=== PATIENT | male | born 1975 | race Caucasian/White ===

== ENCOUNTER 2018-03-02 07:28 | Emergency (ER) | payer BC, OTHER ==
[2018-03-02 07:49] LABS: Bilirubin Negative (Negative); Blood, Urine Large (Negative); Clarity CLOUDY (Clear); Glucose, Urine (Dipstick) Negative (Negative); Leukocyte Trace (Negative); Nitrite Negative (Negative); Protein, Urine (Dipstick) 100 mg/dL (Neg-Trace); Specific Gravity, Urine 1.018 (1.002-1.036); Urobilinogen 0.2 mg/dL (0.2-1.0); pH, Urine 5.5 (5.0-9.0)
[2018-03-02 07:52] LABS: Hyaline Casts/LPF 0-3 HYALINE CAST LPF (0-3 Hyaline); Pathc Cast-AUWi Flag 0.43 (0-2.49); RBC/HPF GREATER THAN 50-TNTC HPF (0-3); Squamous Epithelial 0-3 HPF (0-3)
[2018-03-02] MEDS ORDERED: Ondansetron PF 4 MG/2 ML Vial ONE (08:01)
[2018-03-02] MEDS ORDERED: Ketorolac Tromethamine 30 MG/ML VIAL ONE (08:01)
[2018-03-02 08:04] LABS: #Basophils 0.1 thou/uL (0.0-0.2); #Eosinphils 0.2 thou/uL (0.0-0.7); #Monocytes 0.7 thou/uL (0.11-0.59); #Neutrophils 5.2 thou/uL (1.40-6.50); %Basophils 0.7 % (0.0-1.0); %Lymphocytes 24.3 % (21.0-51.0); %Monocytes 8.4 % (0.0-10.0); %Neutrophils 64.6 % (42.0-75.0); Hemoglobin 17.3 g/dL (14.0-18.0); Mean Corpuscular HGB CONC 33.8 g/dL (32.0-36.0); Mean Corpuscular Hemoglobin 31.1 pg (27.0-31.0); Mean Platelet Volume 6.8 fL (7.4-10.4); Platelet Count 243 thou/uL (130-400); RBC Distribution Width 10.8 % (11.5-14.5); Red Blood Cell (RBC) Count 5.56 mill/uL (4.70-6.10); White Blood Cell (WBC) Count 8.1 thou/uL (4.8-10.8)
[2018-03-02 08:06] LABS: Bacteria/HPF Rare-Few HPF (None Seen); Yeast-All Forms None Seen HPF (None Seen)
[2018-03-02 08:28] LABS: ALT (SGPT) 54 U/L (8-55); AST (SGOT) 28 U/L (5-34); Albumin 4.6 g/dL (3.5-5.0); Alkaline Phosphatase 89 U/L (40-150); Anion Gap 14 mmol/L (10-20); BUN (Urea Nitrogen) 12 mg/dL (8.9-20.6); Bilirubin, Total 0.4 mg/dL (0.2-1.2); Calc. Creatinine Clearance 0 mL/min (70-130); Calcium 9.9 mg/dL (7.8-10.44); Carbon Dioxide 24 mmol/L (22-29); Chloride 104 mmol/L (98-107); Estimated GFR-MDRD 72; Globulin 2.8 g/dL (2.4-3.5); Glucose 107 mg/dL (70-105); Lipase 13 U/L (8-78); Potassium 3.9 mmol/L (3.5-5.1); Protein, Total 7.4 g/dL (6.0-8.3); Sodium 138 mmol/L (136-145)
--- NOTE | 2018-03-02 09:13 | CT ---
CT ABDOMEN NONCONTRAST CT PELVIS NONCONTRAST: (urolithiasis protocol) DATE: 03/02/2018. TIME: 8:18 a.m. HISTORY: A 42-year-old male with right flank pain. COMPARISON: None. TECHNIQUE: IV injection of iodinated contrast media: none. Oral contrast media: none. FINDINGS: Other than for urolithiasis, the lack of IV and oral contrast limits the evaluation. There is a 4 x 3 x 6 mm calculus lodged in the right mid-distal ureter at the mid sacral level causin g moderate right hydroureteronephrosis. There are several tiny bilateral renal calculi in upper, mid , and lower pole calyces. The ones on the right are fewer, and are on the order of 1 or 2 mm in size each. The ones on the left range from 1 mm for the smaller ones, and up to 3 mm for the largest one . No left-sided hydronephrosis. There is a faint, round 1 cm slight hypodensity in the posterior pa renchyma of the right renal mid pole which is too small to definitively characterize. No calculus wi thin the decompressed urinary bladder. Normal appendix. No small bowel dilation. No colonic divert iculitis. Within the limitations of a noncontrast scan, no definite abnormality identified involving liver, abdominal aorta, adrenals, pancreas, or spleen. No ascites or pneumoperitoneum. IMPRESSION: 1. Positive for obstructive uropathy: a 6 mm calculus in the right mid-distal ureter causing modera te right hydroureteronephrosis. 2. Bilateral nephrolithiasis. KEKE Valles POS: KIERA
== END 2018-03-02 09:20 | disposition home or self-care (01) ==
LOC: ERS 07:28
DX: N13.2 Hydronephrosis with renal and ureteral calculous obstruction (principal); G47.30 Sleep apnea, unspecified; G43.909 Migraine, unspecified, not intractable, without status migrainosus
CPT/HCPCS: 36415; 74176; 80053; 81003; 81015; 83690; 85025; 87086; 96361; 96374; 96375; J1885; J2405

== ENCOUNTER 2018-03-08 09:24 | Outpatient (CLI) | payer BC ==
[2018-03-08 11:27] LABS: PTT 31.4 SEC (22.9-36.1)
== END 2018-03-08 09:25 | disposition home or self-care (01) ==
LOC: LABBT 09:24
PROVIDERS: ATTEND Urology
DX: Z01.818 Encounter for other preprocedural examination (principal); N20.1 Calculus of ureter
CPT/HCPCS: 85610; 85730; 93005; 93010

== ENCOUNTER 2018-03-11 10:46 | Day surgery (SDC) | payer BC ==
[2018-03-08 12:23] VITALS: BMI 36.1
[2018-03-11] MEDS ORDERED: Levofloxacin 500 mg/D5W 100 ml Premix Bag ONE (11:34)
[2018-03-11] MEDS ORDERED: Iothalamate Meglumine 60% 50 ML VIAL FS ONE (11:47)
[2018-03-11] MEDS ORDERED: Fentanyl 100 MCG/2 ML VIAL ONE (11:50)
--- NOTE | 2018-03-11 12:23 | RAD ---
ABDOMEN 1 VIEW: Date: 03/11/18 HISTORY: Preoperative evaluation. FINDINGS: Probable very tiny, faint left renal lower pole calculus. No bowel obstruction or other acute process . The previously noted right ureteral calculus is somewhat obscured, but probably still overlies the ri ght inferior sacral region. IMPRESSION: Probable persistent right ureteral calculus overlying the right sacrum, although it is at least parti ally obscured. Tiny nonobstructing left renal calculus. POS: WAYNE
[2018-03-11] MEDS ORDERED: Oxybutynin 5 MG TAB ONE (13:35)
[2018-03-11] MEDS ORDERED: Phenazopyridine HCl 97.5 MG TABLET ONE (13:35)
--- NOTE | 2018-03-11 14:54 | OP ---
DATE OF PROCEDURE: 03/11/2018 PRIMARY CARE PHYSICIAN: Dr. Adria Bhagat. PREOPERATIVE DIAGNOSES: 1. A 42-year-old male with history of right mid ureteral calculi at the level of inferior SI joint measuring 4 x 3 x 6 mm. Hounsfield unit 1100. 2. Right punctate renal lithiasis. 3. Right lower pole hypodense renal cyst 1 cm. 4. Left renal lithiasis in the mid to lower pole x2, 3 mm, 1 mm respectively. POSTOPERATIVE DIAGNOSES: 1. A 42-year-old male with history of right mid ureteral calculi at the level of inferior SI joint measuring 4 x 3 x 6 mm. Hounsfield unit 1100. 2. Right punctate renal lithiasis. 3. Right lower pole hypodense renal cyst 1 cm. 4. Left renal lithiasis in the mid to lower pole x2, 3 mm, 1 mm respectively. PROCEDURES PERFORMED: Cystoscopy, bilateral retrograde, balloon dilation of the right intramural ureter, rigid ureteroscopy, laser lithotripsy, basket extraction of ureteral calculi, 6 x 26 double-J ureteral stent placement. SPECIMEN: None. DISPOSITION: To recovery room in stable condition. INTRAOPERATIVE FINDINGS: 1. Left retrograde pyelogram negative for obstructive uropathy. 2. Right retrograde pyelogram demonstrating an obstructing right mid ureteral stone at the level of inferior SI joint level consistent with CT. 3. 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 INDICATIONS FOR PROCEDURE AND HISTORY: Mr. Humphreys is a 42-year-old male, who presented to the emergency room due to right flank pain. His pain was adequately controlled with appropriate pain medication due to non-progression of his stone. He desired to proceed with ureteroscopy and laser lithotripsy. We discussed alternative options such as ESWL, which is not advised as the stone is at the level of pelvic inlet and risks and complications including, but not limited to, bleeding, pain, infection, injury to adjacent organs, urosepsis, stricture formation, and possible secondary procedure was reviewed with him in detail. All questions were answered to his satisfaction and desired to proceed without reservation. DESCRIPTION OF PROCEDURE: After an informed consent was signed, the patient was taken to the operating room, placed in dorsal lithotomy position with the genital area prepped and draped in the usual surgical sterile fashion. A 21-Argentine cystoscope was utilized as a bilateral KRISTA hose SCDs and broad-spectrum antibiotics were provided. A 21-Argentine cystoscope was utilized for cystoscopy, which demonstrated normal anteroposterior urethra with no significant obstruction or stricture disease. The bladder was entered, which demonstrated normal UOs in normal orthotopic position. This morning, he said he also had vague left lower back pain. Therefore, I did perform a left retrograde pyelogram per his request, demonstrating no evidence of filling defect. Prompt excretion of contrast was noted. Initially, there was an air bubble, that was injected; however, it subsequently demonstrated no evidence of filling defect. Prompt excretion of contrast with no evidence of hydronephrosis of the left collecting system was noted. We then paid our attention to the right UO. An open-ended catheter was utilized to perform a retrograde pyelogram demonstrating an obstructing stone at the inferior SI joint level. The contrast was somewhat difficult to opacify proximal to the stone. A 0.35 Sensor wire was attempted; however, the stone was difficult to engage and pass this wire proximal to this. Therefore, using 1:1 diluted contrast with viscous lidocaine , I lubricated the region with viscous lidocaine and contrast opacifying the ureter just proximal to the stone. With this maneuver, I was able to negotiate a 0.35 Sensor wire carefully into the right upper pole. Subsequent retrograde pyelogram does confirm that it has a bifid ureter at the level of L4-L5. The wire was seen in the left upper pole. At this time, using a [employer] balloon dilator 12- [place] 4 cm, we dilated his intramural ureter and sequentially dilated a more proximal segment just proximal to this. After appropriate balloon dilatation with pressure held for a few minutes, the balloon was completely deflated. A rigid ureteroscope was then subsequently passed with safety wire in-situ. The area of the stone consistent with an obstructing impacted stone was noted. There was some bullous edema at the level of the stone. I pushed the stone just proximal to this area and engaged the stone with a 200 micron laser fiber. Using a dust setting, we tested the stone into multiple tiny pieces. Those that were amendable to be basket extracted was retrieved and they were quite small. We retrieved the stones atraumatically with a Zero Tip Nitinol basket. I re-staged his ureter, which demonstrated no further stone nidus of concern. A retrograde pyelogram demonstrated no evidence of extravasation of contrast. He tolerated the procedure well. Bladder was completely emptied. At this time, a 6 x 26 double-J ureteral stent was passed without difficulty. We confirmed the proximal coil in the upper pole moiety with adequate redundancy in the bladder and distal tail was left in-situ. He tolerated the procedure well and transferred to the recovery room in stable condition. He will follow up with me on March 21 for cysto stent pull under local at 8:15. He is discharged with ciprofloxacin for 5 days and 1 dose to be taken at a.m. of cysto stent pull, [place] prescription refill #30 p.r.n., AZO, Colace p.r.n., and Flomax #[phone] one p.o. daily. Job ID: [id number] MTDD
--- NOTE | 2018-03-11 14:56 | RAD ---
RETROGRADE PYELOGRAM: Date: 03-11-18 Comparison: None. History: Ureteroscopy. FINDINGS: Three images from a retrograde pyelogram provided. There is contrast media within the urinary bladder . There is a partially opacified right ureter demonstrating proximal duplication. Images demonstrate placement of a double J ureteral stent on the right associated with the upper pole molality. Partially opacified left renal collecting system demonstrates no evidence for hydronephrosis. Of note , there is mild blunting of the calices associated with the right kidney suggesting a mild degree of obstructive uropathy, which could be better assessed via CT. 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 Blunting of marco elmer involving upper pole and lower pole molality on the right with placement of a double J ureteral s tent on the right associated with the upper pole molality. POS: KIERA
[2018-03-11] MEDS ORDERED: PROPOFOL 200 MG/20 ML VIAL ONE (15:38)
[2018-03-11] MEDS ORDERED: Lidocaine 1% PF 5 ML VIAL ONE (15:38)
[2018-03-11] MEDS ORDERED: Glycopyrrolate 0.2 MG/ML 5 ML SYRINGE ONE (15:38)
[2018-03-11] MEDS ORDERED: Ondansetron PF 4 MG/2 ML Vial ONE (15:38)
[2018-03-11] MEDS ORDERED: Rocuronium Bromide 10 MG/ML (10ML VIAL) ONE (15:38)
== END 2018-03-11 14:50 | disposition home or self-care (01) ==
LOC: SDC 10:46
PROVIDERS: ATTEND Urology
PROC: 0TF68ZZ Fragmentation in Right Ureter, Via Natural or Artificial Opening Endoscopic (ICD-10-PCS; principal; 2018-03-11)
PROC: 0T768DZ Dilation of Right Ureter with Intraluminal Device, Via Natural or Artificial Opening Endoscopic (ICD-10-PCS; principal; 2018-03-11)
PROC: BT14ZZZ Fluoroscopy of Kidneys, Ureters and Bladder (ICD-10-PCS; principal; 2018-03-11)
DX: N20.2 Calculus of kidney with calculus of ureter (principal); N28.1 Cyst of kidney, acquired; Q62.8 Other congenital malformations of ureter; G47.30 Sleep apnea, unspecified; G43.909 Migraine, unspecified, not intractable, without status migrainosus; Z79.2 Long term (current) use of antibiotics; Z79.899 Other long term (current) drug therapy; Z88.5 Allergy status to narcotic agent; Z88.8 Allergy status to other drugs, medicaments and biological substances
CPT/HCPCS: 74018; 74420; C1758; C1769; J1956; J3010; Q9961

== ENCOUNTER 2018-09-18 07:51 | Outpatient (CLI) | payer BC ==
[2018-09-18 08:32] LABS: Bilirubin Negative (Negative); Blood, Urine Trace (Negative); Clarity Clear (Clear); Glucose, Urine (Dipstick) Negative (Negative); Leukocyte Negative (Negative); Nitrite Negative (Negative); Protein, Urine (Dipstick) Negative (Neg-Trace); Urobilinogen 0.2 mg/dL (Less than 2)
--- NOTE | 2018-09-18 08:34 | RAD ---
EXAM: XR Abdomen 1 View/KUB PROVIDED CLINICAL HISTORY: Nephrolithiasis COMPARISON: 03/11/2018. FINDINGS: The punctate calculus overlying the inferior pole left renal shadow is again seen. No additional susp icious calcifications are seen overlying the location of the renal collecting systems or along the expected course of either ureter. The right ureteral stent noted on study of 03/11/2018 has been remove d. The calcification at the level of the mid right ureter noted on prior exam is not visualized on this study. Bowel gas pattern is nonspecific. No other interval change. IMPRESSION: 1. Left nephrolithiasis. 2. Suggested calculus overlying the mid right ureter on prior abdominal radiograph is not seen on thi s study, and this may be related to interval treatment or passage of the calculus.
[2018-09-18 08:39] LABS: Anion Gap 13 mmol/L (10-20); BUN (Urea Nitrogen) 11 mg/dL (8.9-20.6); Calc. Creatinine Clearance 0 mL/min (70-130); Calcium 9.2 mg/dL (7.8-10.44); Carbon Dioxide 27 mmol/L (22-29); Chloride 106 mmol/L (98-107); Estimated GFR-MDRD 82; Glucose 107 mg/dL (70-105); Potassium 4.5 mmol/L (3.5-5.1); Sodium 141 mmol/L (136-145); Uric Acid 6.9 mg/dL (3.5-7.2)
--- NOTE | 2018-09-18 08:47 | ULT ---
RENAL SONOGRAM: HISTORY: Renal stones. FINDINGS: The right kidney is 11.2 cm in length. The collecting system is decompressed. Tiny cysts at the inf erior pole. No large stones are reliably demonstrated. The left kidney is 11.7 cm. No hydronephrosis or mass. Stones not well demonstrated. Urinary bladd er is unremarkable. IMPRESSION: 1. No evidence of urinary tract obstructions. Calcifications are not well visualized on sonography in this case. 2. Small right renal cyst. POS: WAYNE
[2018-09-18 09:02] LABS: Bacteria/HPF None Seen HPF (None Seen); RBC/HPF 0-3 HPF (0-3); Squamous Epithelial 0-3 HPF (0-3); WBC/HPF 0-3 HPF (0-3)
== END 2018-09-18 07:52 | disposition home or self-care (01) ==
LOC: SCSULT 07:51
PROVIDERS: ATTEND Urology
DX: N20.0 Calculus of kidney (principal); N28.1 Cyst of kidney, acquired; R35.0 Frequency of micturition
CPT/HCPCS: 36415; 74018; 76770; 80048; 81001; 83970; 84550; 87086

== ENCOUNTER 2020-10-12 07:51 | Outpatient (CLI) | payer BC | END 2020-10-12 07:52 | disposition home or self-care (01) | LOC: SCSRAD 07:51 | PROVIDERS: ATTEND Urology | DX: N20.0 Calculus of kidney (principal) | CPT/HCPCS: 74018 ==